=== PATIENT | male | born 1985 | race Caucasian/White ===

== ENCOUNTER 2019-06-23 07:19 | Emergency (ER) | payer OTHER, SELFPAY ==
[2019-06-23 07:20] VITALS: BP 128/74; PULSE 78; RESP 20; TEMP 37.1; O2SAT 97
--- NOTE | 2019-06-23 07:38 | ED.EYEPROB ---
HPI - Eye Problem General Chief complaint: Eye Problems Stated complaint: eye infection Source: patient Mode of arrival: ambulatory Limitations: no limitations History of Present Illness HPI Narrative: Patient presents with a red injected right eye with some yellow discharge has had chronic issues with his eye does not have a primary care physician [facility] has not had a follow-[facility], was seen here in April in our ER prescribed antibiotic eyedrops that he never got filled. Currently there is no cough no fever no nasal discharge. chief complaint: eye pain and eye redness Onset (ago): day(s) Onset description: gradual Duration: constant Location: right eye Eye Symptoms: redness, itching and discharge Place: home Mechanism: none Severity: mild Related Data Allergies Allergy/AdvReac Type Severity Reaction Status Date / Time No Known Allergies Allergy Verified 04/02/19 14:21 Review of Systems Review of Systems: All systems reviewed & are unremarkable except as noted in HPI and below Exam Const: General: no acute distress and alert Orientation/consciousness: patient oriented x3 HENMT: Head: normal to inspection Eyes: Conjunctivae: conjunctival abnormality Pupils: Equal, round and reactive pupils present Neck: Neck: normal visual inspection Chest: Chest palpation & inspection: normal inspection of the chest Resp: Effort & Inspection: normal respiratory effort Cardio: Rate: regular rate Rhythm: regular rhythm GI: Auscultation: normal bowel sounds Urinary Catheter: Urinary Catheter: patent and draining Back/Spine/Pelvis: Back: no CVA tenderness Neuro: General: patient oriented x3 Extrem: General: normal to inspection Critical Care Time Critical Care Time Critical Care Time: No Discharge Plan Discharge Clinical Impression: Bacterial conjunctivitis Patient Disposition: Home, Self-Care Condition: Stable Instructions: Antibiotic Form, Conjunctivitis (ED) Additional Instructions: follow-up with primary care physician if you can get your medication filled. Prescriptions: New neomycin-polymyxin B-dexameth [Maxitrol] 3.5mg/mL-10,000 unit/mL-0.1 % drops,suspension 1 drop RIGHT EYE Q4H 7 Days Qty: 5 RF: 0 No Action ciprofloxacin HCl 0.3 % drops 2 drop RIGHTEYE Q4H 7 Days Qty: 5 RF: 0 Follow-up/Referrals: UNKNOWN,DOCTOR [Primary Care Provider] - Time of Disposition: 07:43
== END 2019-06-23 07:54 | disposition home or self-care (01) ==
PROVIDERS: Emergency Provider Emergency Medicine
DX: H10.89 Other conjunctivitis (principal)
CPT/HCPCS: 99283

== ENCOUNTER 2021-08-03 22:24 | Emergency (ER) | payer OTHER, SELFPAY ==
[2021-08-03 22:34] VITALS: BP 115/80; PULSE 111; RESP 20; TEMP 36.4; O2SAT 97
--- NOTE | 2021-08-03 22:45 | ED.GENADULT ---
HPI - General Adult General Chief complaint: Unspecified Stated complaint: tooth pain/needs antibiotics Source: patient Mode of arrival: ambulatory Limitations: no limitations History of Present Illness HPI narrative: this is a 36-year-old gentleman with chronic tooth decay and having a an abscess in his right lower molar area with tooth decay tooth ache surrounding gum inflammation tender right submandibular gland with no shortness of breath no fever chills. Onset (ago): day(s) Location: mouth Related Data Allergies Allergy/AdvReac Type Severity Reaction Status Date / Time No Known Allergies Allergy Verified 08/03/21 22:39 Review of Systems Review of Systems: All systems reviewed & are unremarkable except as noted in HPI and below PMFSH Past Medical History Medical History (Updated 08/03/21 @ 22:48 by Daniel Dumont MD) Patient denies significant medical history Social History Social History Smoking status: Current every day smoker Exam Const: General: cooperative and healthy appearing HENMT: Head: normal to inspection Ears: hearing grossly normal bilaterally General nose exam: Normal external nose present Face and sinus: normal facial exam Mouth: Yes Normal oral and palatal mucosa present Teeth and gingiva: caries and gingiva abnormal Teeth image: 1. Tooth decay with surrounding gum inflammation Eyes: General: appearance normal, both eyes and all related structures Neck: Neck: normal visual inspection, full ROM and no lymphadenopathy Chest: Chest palpation & inspection: normal inspection of the chest Resp: Effort & Inspection: normal respiratory effort Cardio: Jugular venous distension: no JVD Palpation: normal PMI Rate: regular rate GI: Inspection: normal to inspection Back/Spine/Pelvis: Back: no CVA tenderness Skin: General skin exam: normal color and no rashes or lesions noted Neuro: General: oriented to person and oriented to place Course Course Emergency Course: patient received IM Toradol and IM ceftriaxone and given a list of dentists that he can follow-up with. Vital Signs Vital signs: Vital Signs Temperature 36.4 C 08/03/21 22:34 Pulse Rate 111 H 08/03/21 22:34 Respiratory Rate 20 08/03/21 22:34 Blood Pressure 115/80 08/03/21 22:34 Pulse Oximetry 97 08/03/21 22:34 Temperature 36.4 C 08/03/21 22:34 Pulse Rate 111 H 08/03/21 22:34 Respiratory Rate 20 08/03/21 22:34 Blood Pressure 115/80 08/03/21 22:34 Pulse Oximetry 97 08/03/21 22:34 Medical Decision Making Vital Signs Vital Signs: Vital Signs Temperature 36.4 C 08/03/21 22:34 Pulse Rate 111 H 08/03/21 22:34 Respiratory Rate 20 08/03/21 22:34 Blood Pressure 115/80 08/03/21 22:34 Pulse Oximetry 97 08/03/21 22:34 Temperature 36.4 C 08/03/21 22:34 Pulse Rate 111 H 08/03/21 22:34 Respiratory Rate 20 08/03/21 22:34 Blood Pressure 115/80 08/03/21 22:34 Pulse Oximetry 97 08/03/21 22:34 Critical Care Time Critical Care Time Critical Care Time: No Discharge Plan Discharge Clinical Impression: Dental abscess Patient Disposition: Home, Self-Care Condition: Stable Instructions: Antibiotic Form, Dental Abscess (ED) Additional Instructions: take medicine as prescribed and follow-up with dentist within 1 to 2 weeks further evaluation. Prescriptions: New amoxicillin 500 mg tablet 500 mg PO TID Qty: 30 RF: 0 tramadol [Ultram] 50 mg tablet 50 mg PO Q4H PRN (Reason: pain) Qty: 20 RF: 0 No Action neomycin-polymyxin B-dexameth [Maxitrol] 3.5mg/mL-10,000 unit/mL-0.1 % drops,suspension 1 drop RIGHT EYE Q4H 7 Days Qty: 5 RF: 0 Follow-up/Referrals: UNKNOWN,DOCTOR [Primary Care Provider] - Time of Disposition: 22:50
[2021-08-03] MEDS: KETOROLAC (*BKC) 60 MG/2 ML VIAL IM (22:51)
[2021-08-03] MEDS: cefTRIAXone 1 GM VIAL IM (22:51)
== END 2021-08-03 23:00 | disposition home or self-care (01) ==
PROVIDERS: Emergency Provider Emergency Medicine
DX: K04.7 Periapical abscess without sinus (principal)
CPT/HCPCS: 96372; 99284; J0696; J1885

== ENCOUNTER 2021-11-30 19:23 | Emergency (ER) | payer OTHER, SELFPAY ==
[2021-11-30 19:27] VITALS: BP 133/85; PULSE 67; RESP 16; TEMP 36.8; O2SAT 99
--- NOTE | 2021-11-30 19:39 | ED.WOUNDLAC ---
HPI - Wound/Laceration General Chief Complaint: Wound/Laceration Stated Complaint: laceration nose Time Seen by Provider: 11/30/21 19:25 Source: patient Mode of arrival: ambulatory Limitations: no limitations History of Present Illness HPI narrative: This is a 36-year-old gentleman that presents after he was working on a sump pump and caused a laceration to the bridge of his nose and to his left upper lip the area is well approximated currently no bleeding no numbness or tingling no blurry vision. Patient is up-to-date with his tetanus. Onset (ago): hour(s) Location: face Place: home Patient tetanus UTD: Yes Context: accidental Associated symptoms: none Related Data Allergies Allergy/AdvReac Type Severity Reaction Status Date / Time No Known Allergies Allergy Verified 11/30/21 19:34 Review of Systems Review of Systems: All systems reviewed & are unremarkable except as noted in HPI and below PMFSH Past Medical History Medical History (Updated 11/30/21 @ 19:44 by Daniel Dumont MD) Patient denies significant medical history Social History Social History Smoking status: Current every day smoker Exam Const: General: healthy appearing Nutritional Appearance: well nourished Orientation/consciousness: patient oriented x3 Limitations: no limitations HENMT: Head: normal to inspection Face and sinus: normal facial exam Mouth: Yes Normal oral and palatal mucosa present Eyes: Conjunctivae: conjunctivae normal Neck: Neck: normal visual inspection Chest: Chest palpation & inspection: normal inspection of the chest Resp: Effort & Inspection: normal respiratory effort Cardio: Rate: regular rate Rhythm: regular rhythm GI: GI Palp: Yes Soft to palpation Auscultation: normal bowel sounds Skin: General skin exam: normal color Wounds: wounds noted Other: 2Cm laceration on the bridge of his nose well-approximated Neuro: General: patient oriented x3 Cranial nerves: Yes Nystagmus not present Speech: normal speech Extrem: General: normal to inspection Psych: Mental Status: mental status grossly normal Affect: normal affect Course Course Emergency Course: patient received some shot of Toradol for pain, Dermabond was used to the bridge of his nose. Procedures Laceration Laceration 1: Date: 11/30/21 Site: face Side (If applicable): left Size (cm): 2 Description: linear Depth: simple, single layer Pre-repair: wound explored and irrigated extensively ====== Skin Level ====== Skin layer closed with: dermabond ====== Subcutaneous Layer ====== ====== Muscle Layer ====== ====== Tendon Layer ====== Critical Care Time Critical Care Time Critical Care Time: No Discharge Plan Discharge Clinical Impression: Laceration, Avulsion of skin Patient Disposition: Home, Self-Care Condition: Stable Instructions: Antibiotic Form, Skin Adhesive Care (ED), Laceration (ED) Additional Instructions: take ibuprofen or Tylenol as needed for pain and follow-up primary care physician if symptoms persist or worsen. Prescriptions: No Action neomycin-polymyxin B-dexameth [Maxitrol] 3.5mg/mL-10,000 unit/mL-0.1 % drops,suspension 1 drop RIGHT EYE Q4H 7 Days Qty: 5 0RF Follow-up/Referrals: UNKNOWN,DOCTOR [Primary Care Provider] - Time of Disposition: 19:43
[2021-11-30] MEDS: KETOROLAC (*BKC) 60 MG/2 ML VIAL IM (19:44)
== END 2021-11-30 20:08 | disposition home or self-care (01) ==
PROVIDERS: Emergency Provider Emergency Medicine
DX: S01.21XA Laceration without foreign body of nose, initial encounter (principal); W45.8XXA Other foreign body or object entering through skin, initial encounter
CPT/HCPCS: 12011; 96372; 99283; J1885